=== PATIENT | female | born 1945 | race Caucasian/White ===

== ENCOUNTER → 2021-03-27 09:14 | Outpatient (CLI) | payer MEDICARE, SELFPAY ==
[2021-03-27 09:46] LABS: BUN Creatinine Ratio 25.5 (6-22); Blood Urea Nitrogen 13 mg/dL (7-17); Calcium 9.6 mg/dL (8.4-10.2); Carbon Dioxide 30 mmol/L (22-32); Chloride 103 mmol/L (98-107); Estimated Glomerular Filt Rate > 60.0 mL/min (>60); Glucose 105 mg/dL (80-110); HEMOLYSIS < 15 (0-50); Potassium 4.4 mmol/L (3.4-5.1); Sodium 138 mmol/L (137-145)
--- NOTE | 2021-03-27 10:31 | DI.CT.S_ITS ---
PROCEDURE: CT ABDOMEN PELVIS W CON INDICATIONS: Malignant neoplasm of uterus, part unspecified TECHNIQUE: After the administration of oral and intravenous contrast, axial sections were acquired from the lung bases to the pubic symphysis. Coronal and sagittal reformats were performed. For radiation dose reduction, the following was used: automated exposure control, adjustment of mA and/or kV according to patient size. COMPARISON:None. FINDINGS: Image quality: Excellent. Lung bases: Unremarkable. Heart: No significant findings. ABDOMEN: Liver: Unremarkable. Gallbladder: The gallbladder contains a small densely calcified gallstone measuring approximately 6 x 7 mm in maximal dimension, which likely is mobile and is not associated with biliary distension or evidence of acute cholecystitis. Biliary ducts: Unremarkable. Pancreas: Unremarkable. Spleen: Unremarkable. Adrenal Glands: Unremarkable. Kidneys and Ureters: Unremarkable. Stomach and Bowel: Stomach, small bowel loops, and colon are unremarkable. Peritoneum: There is a small amount of deep pelvic abnormal abnormal intraperitoneal fluid, with subtle but definite associated slight peritoneal enhancement and thickening. This is best seen at the left hemipelvis series 2, image 68. Additionally, there is finding of slight increased thickness of the omentum and increased radiodensity within the omentum when compared to the overlying body wall fat, and several areas mild stranding within the omentum consistent with early peritoneal carcinomatosis. A slight amount of peritoneal enhancement and thickening is associated with fluid at the hepatic renal cysts space at the inferior border of the liver, series 2, image 27. The area of omental thickening of concern is at the left upper quadrant centered on series 2, image 25. More inferiorly it can also be seen series 2, image 32 on the left, and yet discrete solid peritoneal masses are not seen.. Ventral Wall: No hernia. Abdominal Nodes: No retroperitoneal or mesenteric adenopathy by size criteria within the abdomen but there are several left periaortic slightly prominent lymph nodes.. Vessels: Aorta and inferior vena cava are normal in size. PELVIS: Pelvic Organs: Unremarkable except for what appears to be abnormal soft tissue thickening and enhancement within the endometrial canal surrounded by enhancing endometrial lining, measuring up to 2.1 cm. . Bladder: Unremarkable. Pelvic Nodes: No enlarged lymph nodes. Miscellaneous: No inguinal hernias are seen. At the external iliac artery node chains there are 2 discrete pathologic appearing nodes which are rounded in morphology and do not show a discrete fatty hilum. This finding is centered on series 2, image 64 on the left adjacent to the posterior border of the external iliac vein where the short axis diameter of the abnormal node measures up to 1.3 cm and the long axis is 1.9 cm. A slightly smaller but similar note is seen on the right centered on series 2, image 66. Long axis dimension at this node is 1.6 cm. Bones: Unremarkable. IMPRESSION: There is an endometrial mass within the uterus measuring up to 2.1 cm in dimension and bilateral single enlarged rounded lymph nodes at the external iliac node chain bilaterally. Also, there is abnormal exudative appearing peritoneal free fluid deep within the cul-de-sac and at the hepatic renal space abutting the lower margin of the right liver. These fluid collections show subtle but definite peripheral enhancement and peritoneal thickening. At the omentum on the left within the abdomen superiorly and at the middle 3rd of the abdomen there is a finding of subtle increased omental radiodensity and thickening of the omental soft tissue likely indicative of early peritoneal carcinomatosis in this clinical setting. Dictated by: Sin Santana M.D. on 03/27/2021 at 17:23 Approved by: Sin Santana M.D. on 03/27/2021 at 17:35
== END ==
PROVIDERS: PCP Family Medicine; Referring Provider Obstetrics & Gynecology; Visit Provider Obstetrics & Gynecology
DX: C55 Malignant neoplasm of uterus, part unspecified (principal); R59.0 Localized enlarged lymph nodes
CPT/HCPCS: 36415; 74177; 80048

== ENCOUNTER 2021-04-19 13:41 | Emergency (ER) | payer MEDICARE, SELFPAY ==
[2021-04-19] VITALS (12 sets, daily range): BP systolic 127–165; BP diastolic 62–77; PULSE 81–103; RESP 20–25; TEMP 36.5; O2SAT 96–99; BMI 28.8
--- NOTE | 2021-04-19 13:56 | DI.RAD.S_ITS ---
PROCEDURE: XR CHEST 1V INDICATIONS: chest pain TECHNIQUE: One view of the chest was acquired. COMPARISON: None. FINDINGS: Surgical changes and devices: None. Lungs and pleura: Lungs are clear. No pleural effusions or pneumothorax. Mediastinum: Mediastinal contours appear normal. Heart size is normal. Bones and chest wall: No suspicious bony lesions. Overlying soft tissues appear unremarkable. IMPRESSION: 1. No acute cardiopulmonary disease. Dictated by: Hiren Burgess M.D. on 04/19/2021 at 14:41 Approved by: Hiren Burgess M.D. on 04/19/2021 at 14:44
[2021-04-19 14:10] LABS: Add Manual Diff / Slide Review NO; Basophils Absolute Auto 100 /uL (0-100); Basophils Percent Auto 0.3 % (0-2); Eosinophils Absolute Auto 0 /uL (0-450); Eosinophils Percent Auto 0.1 % (2-4); Hematocrit 37.3 % (36-46); Hemoglobin 12.5 g/dL (12.0-16.0); Lymphocytes Absolute Auto 1200 /uL (1100-4500); Lymphocytes Percent Auto 5.7 % (25-40); Mean Corpuscular HGB Conc 33.5 % (30-36); Mean Corpuscular Volume 95.6 fL (80-100); Monocytes Absolute Auto 1200 /uL (0-900); Monocytes Percent Auto 5.9 % (3-14); Neutrophils Absolute Auto 18700 /uL (1500-7000); Platelet Count 684 X10^3/uL (150-400); Red Cell Distribution Width 12.2 % (11.6-14.8); White Blood Cell Count 21.2 X10^3/uL (4.5-11.0)
[2021-04-19 14:15] LABS: Prothrombin Time 11.4 SECONDS (10.1-12.7)
[2021-04-19 14:18] LABS: PTT Partial Thromboplastin Tim 30 SECONDS (26.4-36.2)
--- NOTE | 2021-04-19 14:18 | PC.NURSE ---
Patient c/o SOB on exertion with rapid heart rate with palpatations that has now been occurring at both rest and with exertion. During auscultation heard extra beats that correlated with telemetry reading at bedside, PACs and PVCs.
[2021-04-19 14:19] LABS: Alanine Aminotransferase 8 IU/L (<35); Albumin 3.6 g/dL (3.5-5.0); Albumin Globulin Ratio 1.1 (1.0-2.8); Alkaline Phosphatase 82 U/L (38-126); Aspartate Aminotransferase 39 IU/L (14-36); BUN Creatinine Ratio 22.1 (6-22); Bilirubin Total 0.5 mg/dL (0.2-1.3); Blood Urea Nitrogen 19 mg/dL (7-17); Calcium 9.1 mg/dL (8.4-10.2); Carbon Dioxide 27 mmol/L (22-32); Chloride 97 mmol/L (98-107); Creatine Kinase 70 U/L (30-135); Estimated Glomerular Filt Rate > 60.0 mL/min (>60); Globulin 3.2 g/dL (1.7-4.1); Glucose 127 mg/dL (80-110); HEMOLYSIS < 15 (0-50); Lipase 23 U/L (23-300); Potassium 4.3 mmol/L (3.4-5.1); Sodium 131 mmol/L (137-145); Total Protein 6.8 g/dL (6.3-8.2)
[2021-04-19 14:30] LABS: Troponin I < 0.012 ng/mL (0.01-0.034)
--- NOTE | 2021-04-19 14:44 | ED_ITS ---
HPI - Chest Pain General Chief Complaint: Chest Pain Stated Complaint: fast heart rate, sob, post surgery Time Seen by Provider: 04/19/21 14:34 Source: patient and family (spouse) Mode of arrival: Ambulatory Limitations: no limitations History of Present Illness HPI narrative: This is a 76-year-old female comes in with complaint of fast heart rate intermittently at home. She has been sweaty. She checked her temp erature was 97.6? at her T-max. She has had some shortness of breath at times. She denies any chest pain or pressure. No cough cold or congestion. She has had quite a runny nose. She has had some mild nausea. She did has had some abdominal pain and is 2 weeks postop for robotic surgery and she was noted have significant cancer in her abdomen so they after evaluating her closed her up without any further surgical intervention and she has to move on to chemo at this time. Patient states that the pain has not been worsening but has not significantly improved. It is a little bit more on the right side. Sort of comes and goes. Her incisions seem to be healing okay but there is some slight redness. She has had no back or flank pain. She has had some vaginal bleeding status post surgery up to a pad a day but states she was told this was not usual by her surgical team chills like she had a mild decrease in her urine output but no dysuria, urgency or frequency. She denies rashes or other skin changes. She has a history of dyslipidemia coronary artery disease, glaucoma, rosacea and Parkinson's. She has never had any cardiac stents. She is on aspirin daily but stopped this for her surgery and has not resumed it. Her only other surgeries was a right axillary lymph node removed remotely. She is allergic to sulfa. No tobacco, occasional alcohol, no illicit. She lives on [facility] and see's Dr. Newsome for her PCP. Related Data Home Medications Medication Instructions Recorded Confirmed atorvastatin 20 mg tablet 20 mg PO DAILY 12/05/20 02/20/21 brimonidine 0.2 %-timolol 0.5 % drp EYE-BOTH BID ml 12/05/20 02/20/21 eye drops (Combigan) carbidopa ER 25 mg-levodopa 100 mg 1 tab PO BID 12/05/20 02/20/21 tablet,extended release latanoprost 0.005 % eye drops drp EYE-BOTH 12/05/20 02/20/21 losartan 50 mg tablet 50 mg PO DAILY 12/05/20 02/20/21 metronidazole 0.75 % topical cream 1 applic TOPICAL BID 12/05/20 02/20/21 Previous Rx's Medication Instructions Recorded cephalexin 500 mg capsule 500 mg PO BID 7 Days #14 cap 04/19/21 Allergies Allergy/AdvReac Type Severity Reaction Status Date / Time Sulfa (Sulfonamide Allergy Intermediate Verified 04/19/21 13:57 Antibiotics) Review of Systems Review of Systems ROS Unobtainable: All systems reviewed & are unremarkable except as noted in HPI and below Patient History Social History Smoking Status: Never smoker Smoking Status: Never smoker Substance Use Type: does not use Exam Narrative Exam Narrative: GENERAL: Alert and oriented x three, elderly female in mild distress. HEENT: Head normocephalic, atraumatic, EOMI, pupils reactive, face symmetric, moist mucous membranes NECK: Supple, full range of motion CARDIOVASCULAR: Regular rate and rhythm without murmurs, rubs or gallops. No JVD. No swelling bilateral lower extremities. RESPIRATORY: Breath sounds equal bilaterally, no wheezes rales or rhonchi. No tachypnea accessory muscle use. ABDOMEN: Soft, mild to moderate tenderness. Patient's incisions particularly the 1 on the right has a area of erythema with slight induration but no obvious mass or fluctuance. Normoactive bowel sounds all 4 quadrants. No guarding or rebound, rigidity, no mass otherwise appreciated. mildly distended. : No CVA tenderness EXTREMITIES: Normal range of motion, no clubbing or edema. Neurovascularly intact NEUROLOGICAL: Cranial nerves II through XII grossly intact. Moving all extremities SKIN: Warm, dry, no petechiae, no rashes or lesions. Initial Vital Signs Initial Vital Signs: Vital Signs Temperature 97.7 F 04/19/21 13:52 Pulse Rate 101 H 04/19/21 13:52 Respiratory Rate 25 H 04/19/21 13:52 Blood Pressure 127/77 04/19/21 13:52 Pulse Oximetry 98 04/19/21 13:52 Course Orders Ordered: Discontinued Medications Cephalexin HCl (Cephalexin 250 Mg Capsule) 500 mg PO NOW ONE Stop: 04/19/21 17:09 Last Admin: 04/19/21 17:15 Dose: 500 mg Documented by: CAREN Sodium Chloride (Normal Saline 0.9%) 1,000 mls @ 1,000 mls/hr IV BOLUS ONE Stop: 04/19/21 16:00 Last Infusion: 04/19/21 16:58 Dose: 0 mls/hr Documented by: Admin: 04/19/21 15:20 Dose: 1,000 mls/hr Documented by: CAREN Consultations Consultation #1: Patient case discussed with Dr. Pennington's partner, Dr. mando fernandez. Patient does have a rise in her white count she is afebrile. She is slightly tachycardic initially on arrival. Platelets are also elevated which suggestive acute phase reactant. Patient does not have a clear source of infection at this time. Urine is questionable, blood cultures are pending. Patient did have CT of chest to rule out pulmonary emboli which is negative and does not show any obvious signs of infection. Abdominal pelvic CT shows changes consistent with her known intra-abdominal cancer, postsurgical changes and possible seroma versus possibly developing abscess. We did discuss that no other clear source has been found. There was a very small area of cellulitis at maximum 2 cm on her right lower abdomen but she is also tender in that area of possible developing abscess. At this time they would like to see patient Thursday or Thursday and have her return to the emergency department in between she is developing fevers. Patient has a questionable UTI and was started on Keflex for this. Vital Signs Vital signs: Vital Signs - 8 hr 04/19/21 13:52 04/19/21 14:00 04/19/21 14:01 Temperature 97.7 F Pulse Rate 103 H 92 H 91 H Respiratory Rate 25 H 23 21 Blood Pressure 127/77 147/65 H Pulse Oximetry 98 98 97 04/19/21 14:30 04/19/21 15:00 04/19/21 15:01 Temperature Pulse Rate 92 H 84 85 Respiratory Rate 22 21 20 Blood Pressure 132/62 137/64 Pulse Oximetry 96 97 97 04/19/21 15:21 04/19/21 15:30 04/19/21 15:31 Temperature Pulse Rate 90 81 81 Respiratory Rate 25 H 23 20 Blood Pressure 160/71 H 165/63 H Pulse Oximetry 98 99 99 04/19/21 16:01 Temperature Pulse Rate 95 H Respiratory Rate Blood Pressure Pulse Oximetry 98 MDM - Chest Pain Lab Data Result diagrams: 04/19/21 13:59 04/19/21 13:59 Labs: Lab Results 04/19/21 04/19/21 04/19/21 Range/Units 13:59 13:59 13:59 WBC 21.2 H (4.5-11.0) X10^3/uL RBC 3.90 L (4.0-5.2) X10^6/uL Hgb 12.5 (12.0-16.0) g/dL Hct 37.3 (36-46) % MCV 95.6 (80-100) fL MCH 32.0 (26-34) PG MCHC 33.5 (30-36) % RDW 12.2 (11.6-14.8) % Plt Count 684 H (150-400) X10^3/uL Neut % (Auto) 88.0 H (50-75) % Lymph % (Auto) 5.7 L (25-40) % [place] % (Auto) 5.9 (3-14) % Eos % (Auto) 0.1 L (2-4) % Baso % (Auto) 0.3 (0-2) % Neut # (Auto) 24940 H (6321-7936) /uL Lymph # (Auto) 1200 (6057-6178) /uL [place] # (Auto) 1200 H (0-900) /uL Eos # (Auto) 0 (0-450) /uL Baso # (Auto) 100 (0-100) /uL PT 11.4 (10.1-12.7) SECONDS INR 1.0 (0.9-1.3) APTT 30 (26.4-36.2) SECONDS D-Dimer (<230) ng/mL Sodium 131 L (137-145) mmol/L Potassium 4.3 (3.4-5.1) mmol/L Chloride 97 L (98-107) mmol/L Carbon Dioxide 27 (22-32) mmol/L BUN 19 H (7-17) mg/dL Creatinine 0.86 (0.52-1.04) mg/dL Estimated GFR > 60.0 (>60) mL/min BUN/Creatinine Ratio 22.1 H (6-22) Glucose 127 H (80-110) mg/dL Lactate (0.7-2.1) mmol/L Calcium 9.1 (8.4-10.2) mg/dL Total Bilirubin 0.5 (0.2-1.3) mg/dL AST 39 H (14-36) IU/L ALT 8 (<35) IU/L Alkaline Phosphatase 82 (38-126) U/L Total Creatine Kinase 70 (30-135) U/L CK-MB (CK-2) TNP CK-MB (CK-2) Rel Index TNP Troponin I < 0.012 (0.01-0.034) ng/mL NT-Pro-B Natriuret Pep (<125) pg/mL Total Protein 6.8 (6.3-8.2) g/dL Albumin 3.6 (3.5-5.0) g/dL Globulin 3.2 (1.7-4.1) g/dL Albumin/Globulin Ratio 1.1 (1.0-2.8) Lipase 23 (23-300) U/L Procalcitonin (<0.5) ng/mL Urine Color Urine Appearance Urine pH (4.5-8.0) Ur Specific [place] (1.000-1.035) Urine Protein (Negative) Urine Glucose (UA) (Negative) g/dL Urine Ketones (NEGATIVE) Urine Occult Blood (Negative) Urine Nitrate (Negative) Urine Bilirubin (NEGATIVE) Ur Bilirubin Confirm (Negative) Urine Urobilinogen (0.2) E.U./dL Ur Leukocyte Esterase (NEGATIVE) Urine RBC (0-5/HPF) Urine WBC (0-5/HPF) Ur Squamous Epith Cells (0-5/HPF) Amorphous Sediment Urine Bacteria (None) Ur Culture Indicated? 04/19/21 04/19/21 04/19/21 Range/Units 13:59 13:59 13:59 WBC (4.5-11.0) X10^3/uL RBC (4.0-5.2) X10^6/uL Hgb (12.0-16.0) g/dL Hct (36-46) % MCV (80-100) fL MCH (26-34) PG MCHC (30-36) % RDW (11.6-14.8) % Plt Count (150-400) X10^3/uL Neut % (Auto) (50-75) % Lymph % (Auto) (25-40) % [place] % (Auto) (3-14) % Eos % (Auto) (2-4) % Baso % (Auto) (0-2) % Neut # (Auto) (4080-9800) /uL Lymph # (Auto) (2539-3244) /uL [place] # (Auto) (0-900) /uL Eos # (Auto) (0-450) /uL Baso # (Auto) (0-100) /uL PT (10.1-12.7) SECONDS INR (0.9-1.3) APTT (26.4-36.2) SECONDS D-Dimer 2435 H (<230) ng/mL Sodium (137-145) mmol/L Potassium (3.4-5.1) mmol/L Chloride (98-107) mmol/L Carbon Dioxide (22-32) mmol/L BUN (7-17) mg/dL Creatinine (0.52-1.04) mg/dL Estimated GFR (>60) mL/min BUN/Creatinine Ratio (6-22) Glucose (80-110) mg/dL Lactate 1.7 (0.7-2.1) mmol/L Calcium (8.4-10.2) mg/dL Total Bilirubin (0.2-1.3) mg/dL AST (14-36) IU/L ALT (<35) IU/L Alkaline Phosphatase (38-126) U/L Total Creatine Kinase (30-135) U/L CK-MB (CK-2) CK-MB (CK-2) Rel Index Troponin I (0.01-0.034) ng/mL NT-Pro-B Natriuret Pep (<125) pg/mL Total Protein (6.3-8.2) g/dL Albumin (3.5-5.0) g/dL Globulin (1.7-4.1) g/dL Albumin/Globulin Ratio (1.0-2.8) Lipase (23-300) U/L Procalcitonin 0.36 (<0.5) ng/mL Urine Color Urine Appearance Urine pH (4.5-8.0) Ur Specific [place] (1.000-1.035) Urine Protein (Negative) Urine Glucose (UA) (Negative) g/dL Urine Ketones (NEGATIVE) Urine Occult Blood (Negative) Urine Nitrate (Negative) Urine Bilirubin (NEGATIVE) Ur Bilirubin Confirm (Negative) Urine Urobilinogen (0.2) E.U./dL Ur Leukocyte Esterase (NEGATIVE) Urine RBC (0-5/HPF) Urine WBC (0-5/HPF) Ur Squamous Epith Cells (0-5/HPF) Amorphous Sediment Urine Bacteria (None) Ur Culture Indicated? 04/19/21 04/19/21 Range/Units 13:59 16:03 WBC (4.5-11.0) X10^3/uL RBC (4.0-5.2) X10^6/uL Hgb (12.0-16.0) g/dL Hct (36-46) % MCV (80-100) fL MCH (26-34) PG MCHC (30-36) % RDW (11.6-14.8) % Plt Count (150-400) X10^3/uL Neut % (Auto) (50-75) % Lymph % (Auto) (25-40) % [place] % (Auto) (3-14) % Eos % (Auto) (2-4) % Baso % (Auto) (0-2) % Neut # (Auto) (4574-1779) /uL Lymph # (Auto) (5505-7571) /uL [place] # (Auto) (0-900) /uL Eos # (Auto) (0-450) /uL Baso # (Auto) (0-100) /uL PT (10.1-12.7) SECONDS INR (0.9-1.3) APTT (26.4-36.2) SECONDS D-Dimer (<230) ng/mL Sodium (137-145) mmol/L Potassium (3.4-5.1) mmol/L Chloride (98-107) mmol/L Carbon Dioxide (22-32) mmol/L BUN (7-17) mg/dL Creatinine (0.52-1.04) mg/dL Estimated GFR (>60) mL/min BUN/Creatinine Ratio (6-22) Glucose (80-110) mg/dL Lactate (0.7-2.1) mmol/L Calcium (8.4-10.2) mg/dL Total Bilirubin (0.2-1.3) mg/dL AST (14-36) IU/L ALT (<35) IU/L Alkaline Phosphatase (38-126) U/L Total Creatine Kinase (30-135) U/L CK-MB (CK-2) CK-MB (CK-2) Rel Index Troponin I (0.01-0.034) ng/mL NT-Pro-B Natriuret Pep 284 H (<125) pg/mL Total Protein (6.3-8.2) g/dL Albumin (3.5-5.0) g/dL Globulin (1.7-4.1) g/dL Albumin/Globulin Ratio (1.0-2.8) Lipase (23-300) U/L Procalcitonin (<0.5) ng/mL Urine Color Other Urine Appearance Cloudy Urine pH 5.0 (4.5-8.0) Ur Specific [place] 1.010 (1.000-1.035) Urine Protein 2+ H (Negative) Urine Glucose (UA) Negative (Negative) g/dL Urine Ketones Trace H (NEGATIVE) Urine Occult Blood 3+ H (Negative) Urine Nitrate Negative (Negative) Urine Bilirubin 1+ H (NEGATIVE) Ur Bilirubin Confirm Negative (Negative) Urine Urobilinogen 0.2 (0.2) E.U./dL Ur Leukocyte Esterase Trace H (NEGATIVE) Urine RBC >100/hpf H (0-5/HPF) Urine WBC 1-5/hpf (0-5/HPF) Ur Squamous Epith Cells 0-1 /hpf (0-5/HPF) Amorphous Sediment 1+ Urine Bacteria None seen (None) Ur Culture Indicated? Specimen cultured Imaging Data Chest x-ray: Radiologist's Impression: Launch?[address] [address] XRay Report Signed Patient: Tiffanie Parks MR#: [id number] : 1945 Acct:[id number] Age/Sex: 76 / F Date of Service: 04/19/21 Loc: ED Accession Number: [id number] ?? Procedure: XR chest 1V Ordering Provider: Valeria Alex D.O. PROCEDURE:? XR CHEST 1V ? INDICATIONS:? chest pain ? TECHNIQUE:? One view of the chest was acquired.? ? COMPARISON:? None. ? FINDINGS:? ? Surgical changes and devices:? None.? ? Lungs and pleura:? Lungs are clear.? No pleural effusions or pneumothorax.? ? Mediastinum:? Mediastinal contours appear normal.? Heart size is normal.? ? Bones and chest wall:? No suspicious bony lesions.? Overlying soft tissues appear unremarkable.? ? IMPRESSION:? ? 1.? No acute cardiopulmonary disease. ? ? ? Dictated by: Hiren Burgess M.D. on 04/19/2021 at 14:41 ? ? Approved by: Hiren Burgess M.D. on 04/19/2021 at 14:44?? ECG Data Attestation: I personally reviewed and interpreted this ECG as follows: Interpretation: Sinus rhythm rate of 90 NE 150 QRS is 78 QTC 435. No acute ST changes appreciated. MDM Narrative Medical decision making narrative: This is a 76-year-old female comes in with complaint of intermittent elevated heart rate. Patient has had occasional sweats but no fevers. She has had no worsening abdominal pain but has continued to have some abdominal discomfort. Suspect infection at this time over a cardiac cause. Her EKG and troponin do not show any acute changes and she has not had any telemetry changes showing a rate arrhythmia. She is negative for PE. Imaging has not found a clear source of infection although there is possibility for UTI although less likely, she has a very small localized cellulitis which seems a less likely cause of her leukocytosis in the 20s and potential seroma versus developing abscess on her abdominal CT. Case was discussed with her surgical oncology team who is going to see her shortly. Patient and I discussed observation versus discharge home she elects to return home. We discussed whether holding antibiotics versus starting based on her geographical isolation felt it was prudent to at least cover her for UTIs she would not be able to be seen easily without traveling [place] [employer] [place] Discharge Plan Departure Patient Disposition: Home Clinical Impression: Acute UTI Activity Restrictions/Additional Instructions: Follow-up with your surgical team this week. Call Thursday morning for an appointment. They would like to see you. Your findings today are concerning for infection but exact source has not been found there is potential seroma verses may be abscess on your CT of your abdomen. Urine is also a potential source for infection. Blood cultures and urine culture are currently pending these typically take 48 hours to result. Prescription sent to [facility] pharmacy. Please return for fevers, new or worsening fast heartbeat, lightheadedness or passing out, chest pain, shortness of breath, abdominal pain, redness or swelling, difficulty with urination or other new or concerning symptoms. Prescriptions: New cephalexin 500 mg capsule 500 mg PO BID 7 Days Qty: 14 RF: 0 No Action atorvastatin 20 mg tablet 20 mg PO DAILY RF: 0 losartan 50 mg tablet 50 mg PO DAILY RF: 0 carbidopa-levodopa 25-100 mg tablet extended release 1 tab PO BID RF: 0 metronidazole 0.75 % cream 1 applic topical BID RF: 0 latanoprost 0.005 % drops EYE-BOTH RF: 0 Combigan 0.2-0.5 % drops EYE-BOTH BID RF: 0 Referrals: Chiki Newsome MD [Primary Care Provider] -
[2021-04-19 14:54] LABS: D Dimer 2435 ng/mL (<230)
--- NOTE | 2021-04-19 14:58 | DI.CT.S_ITS ---
PROCEDURE: CT ABDOMEN PELVIS W CON INDICATIONS: fever, 2 weeks ex-lap TECHNIQUE: After the administration of intravenous contrast, axial sections acquired from the lung bases to the pubic symphysis. Coronal and sagittal reformats were performed. For radiation dose reduction, the following was used: automated exposure control, adjustment of mA and/or kV according to patient size. COMPARISON: [facility], CT, CT ABDOMEN PELVIS W CON, 03/27/2021, 10:43. FINDINGS: Image quality: Excellent. Lung bases: See separately dictated CT of the chest. Solid organs: Liver: The liver has no mass or intrahepatic biliary ductal dilatation. Perihepatic ascites is present. The portal vein and hepatic veins are patent. Biliary: The gallbladder contains an 8 mm stone. Pancreas: The pancreas has no mass or ductal dilatation. There is no surrounding inflammation. Spleen: Normal size. There are no masses. Adrenals: No hypertrophy or nodules. Kidneys: No obstructive calculus or hydronephrosis. No solid mass. No cystic mass. Peritoneum and bowel: The distal esophagus and stomach are normal. The small bowel a normal caliber. Small bowel loops in the left upper quadrant demonstrate surrounding peritoneal implants consistent with peritoneal metastasis. The terminal ileum is normal. The large bowel has a normal caliber and appearance. The appendix is normal. Diffuse ascites is present within the peritoneum. Nodes and vessels: Enlarged retroperitoneal lymph nodes are present measuring up to 1.0 x 1.5 cm. Aorta and inferior vena cava are normal in size. Miscellaneous: In the right lower quadrant there is a 1.5 cm fluid collection with surrounding inflammatory changes, likely related to trocar insertion from laparoscopic surgery with a small seroma. An abscess is also a possibility. Please correlate clinically. PELVIS: Genitourinary: The bladder has no wall thickening or mass. No bladder calcifications. Miscellaneous: No inguinal hernias or adenopathy. Bones: Degenerative changes with no focal abnormality. IMPRESSION: 1. Left upper quadrant peritoneal fat stranding most likely peritoneal carcinomatosis. Retroperitoneal adenopathy. 2. Moderate ascites. 3. Right lower quadrant fluid collection superficial to the rectus abdominus muscle likely a seroma and postoperative changes from trocar insertion. An abscess is also possible. Please correlate clinically. Dictated by: Jerry Ahmadi M.D. on 04/19/2021 at 15:37 Approved by: Jerry Ahmadi M.D. on 04/19/2021 at 15:46
--- NOTE | 2021-04-19 14:58 | DI.CT.S_ITS ---
PROCEDURE: CT ANGIO CHEST PE PROTOCOL INDICATIONS: fast hear beat, pelvic cancer, sweats TECHNIQUE: After the administration of intravenous contrast, 2 mm thick sections acquired from the pulmonary apices to the posterior costophrenic angles. 3-dimensional maximum intensity projection (MIP) coronal and sagittal reformats were then acquired through the thorax. For radiation dose reduction, the following was used: automated exposure control, adjustment of mA and/or kV according to patient size. COMPARISON: None. FINDINGS: Image quality: Excellent. Lungs and pleura: There are multiple nodules in both lungs the largest in the right upper lobe measuring 5 mm series 4, image 121; the largest in the right lower lobe measuring 7 mm series 4, image 186; the largest in the left upper lobe measuring 4 mm series 4, image 93 the largest in the lingula measuring 6 mm series 4, image 156; and the largest in the left lower lobe measuring 4 mm series 4, image 129. No acute air space opacities. No pleural effusions or pneumothorax. Central and peripheral airways are patent and normal in caliber. Mediastinum: Heart size is normal. No pericardial effusion. mediastinal lymph nodes are enlarged, the largest AP window lymph node measures 2.1 x 1.1 cm. No hilar adenopathy. Thoracic aorta and central pulmonary arteries are normal in size. Esophagus is normal in caliber. No hiatal hernia. Bones and chest wall: No suspicious bony lesions. No vertebral body compression fractures. No axillary or supraclavicular adenopathy by size criteria. Thyroid gland is normal. Abdomen: See separately dictated CT of the abdomen and pelvis. IMPRESSION: 1. Multiple pulmonary nodules as above and mediastinal adenopathy most likely metastatic disease. 2. No pulmonary embolism. Dictated by: Jerry Ahmadi M.D. on 04/19/2021 at 15:27 Approved by: Jerry Ahmadi M.D. on 04/19/2021 at 15:37
[2021-04-19] MEDS: SODIUM CHLORIDE 0.9% 1,000 ML 1000 ML IV (15:20)
[2021-04-19 15:23] LABS: Lactate (Lactic Acid) 1.7 mmol/L (0.7-2.1)
[2021-04-19 15:33] LABS: NT-proBNP (BNP-Adult 18+) 284 pg/mL (<125)
[2021-04-19 15:40] LABS: Procalcitonin 0.36 ng/mL (<0.5)
[2021-04-19 16:12] LABS: Appearance Urine UA CLOUDY; Bilirubin Urine UA 1+ (NEGATIVE); Glucose Urine UA NEGATIVE (Negative); Ketones Urine UA TRACE (NEGATIVE); Leukocyte Esterase Urine UA TRACE (NEGATIVE); Nitrite Urine UA NEGATIVE (Negative); Occult Blood Urine UA 3+ (Negative); Protein Urine UA 2+ (Negative); Urobilinogen Urine UA 0.2 E.U./dL (0.2)
[2021-04-19 16:13] LABS: Color Urine UA OTHER
[2021-04-19 16:15] LABS: Ictotest Urine Negative (Negative)
[2021-04-19 16:18] LABS: Amorphous Sediment Urine 1+; Bacteria Urine None Seen; Culture Indicated Urine Specimen Cultured; RBC Urine >100/HPF (0-5/HPF); Squamous Epithelial Cell Urine 0-1 /HPF (0-5/HPF); WBC Urine 1-5/HPF (0-5/HPF)
[2021-04-19] MEDS: cephALEXin 250 MG CAPSULE 500 MG PO (17:15)
== END 2021-04-19 17:45 | disposition home or self-care (01) ==
PROVIDERS: Emergency Provider Emergency Medicine; PCP Family Medicine
DX: N39.0 Urinary tract infection, site not specified (principal); R10.9 Unspecified abdominal pain; R00.0 Tachycardia, unspecified; R07.9 Chest pain, unspecified; R11.0 Nausea; R06.02 Shortness of breath
CPT/HCPCS: 36415; 71045; 71275; 74177; 80053; 81001; 82550; 83605; 83690; 83880; 84145; 84484; 85025; 85379; 85610; 85730; 87040; 87086; 93005; 93010; 96360; 96361; 99285; Q9967